=== PATIENT | female | born 1955 | race African-American/Black ===

== ENCOUNTER 2016-12-07 09:05 | Emergency (ER) | payer BC, MEDICAID ==
[~2016-12-07] VITALS: Ht 162.6 cm; Wt 76.9 kg
[~2016-12-07 09:05] MED LIST: ALBU17I INH; ALL220TA PO; CELE200 PO; PERC10TA27 PO; Z.0.NO CURRENT MEDS; ZYRT10TA12 PO
[2016-12-07 09:10] VITALS: BP 139/75; PULSE 80; RESP 16; TEMP 98.1; O2SAT 100
--- NOTE | 2016-12-07 09:31 | PD ---
HPI Chief Complaint: ENT Complaint Time Seen by Provider: 09:14 Travel History International Travel<30 days: No Contact w/Intl Traveler<30days: No Traveled to known affect area: No History of Present Illness HPI This is a 61-year-old female who presents to the emergency department who reports that for several months she's been having intermittent pulsating in her left ear and now it's traveled to her right ear, moderate severity, with no associated pain. She denies any fevers or chills. She denies any headache. She has no primary care physician. She recently moved here. She is on full disability for chronic low back pain. PFSH Past Medical History Asthma: Yes Cancer: No Cardiovascular Problems: Yes (MITRAL VALVE PROLAPSE) Diabetes: No Diminished Hearing: No Endocrine: No Gastrointestinal Disorders: No Genitourinary: No Hepatitis: No Hiatal Hernia: No Hypertension: No Immune Disorder: No Medical other: No Musculoskeletal: Yes (ROTATOR CUFF TEAR L SHOULDER) Neurologic: No Psychiatric: Yes (CLAUSTROPHOBIC) Reproductive: No Respiratory: Yes (HX OF ASTHMA) Immunizations Current: Yes Thyroid Disease: No ?: Not Menopausal: Yes Past Surgical History AICD: No Body Medical Devices: CERVICAL FUSION SCREWS, R SHOULDER SCREW, L BIG TOE SCREW Section: Yes (X 2) Gynecologic Surgery: Yes (C SECTION X 2) Joint Replacement: No Pacemaker: No Other Surgery: Yes (LEFT SHOULDER ROTATOR CUFF SURGERY) Social History Alcohol Use: No Tobacco Use: No Substance Use: No Allergies-Medications (Allergen,Severity, Reaction): Coded Allergies: No Known Allergies (Unverified , 12/07/16) Reported Meds & Prescriptions Reported Meds & Active Scripts Active No Active Prescriptions or Reported Medications Review of Systems General / Constitutional: No: Fever, Chills Cardiovascular: No: Chest Pain or Discomfort Respiratory: No: Shortness of Breath Physical Exam Narrative GENERAL: Well-appearing, no acute distress, nontoxic SKIN: Warm and dry. HEAD: Atraumatic. Normocephalic. ENT: No nasal bleeding or discharge. Moist mucous membranes. Tympanic membranes are clear. MUSCULOSKELETAL: No obvious deformities. No clubbing. No cyanosis. No edema. NEUROLOGICAL: Awake and alert. No obvious cranial nerve deficits. Motor grossly within normal limits. Normal speech. PSYCHIATRIC: Appropriate mood and affect; insight and judgment normal. Data Data Last Documented VS Vital Signs Date Time Temp Pulse Resp B/P Pulse Ox O2 Delivery O2 Flow Rate FiO2 12/07/16 09:10 98.1 80 16 139/75 100 MDM Medical Decision Making Medical Screen Exam Complete: Yes Emergency Medical Condition: Yes Interpretation(s) afebrile, no tachycardia, normotensive Differential Diagnosis Otitis media, otitis externa, AVM Narrative Course This is a 61-year-old female who presents to the emergency department with pulsating in her ears. This is been going on for some time. She has no objective neurologic findings on exam. I explained to her that were limited in our diagnostic ability in the emergency department she likely requires subspecialist follow-up. Patient was given a referral to primary care physician and advised to follow-up with ENT. It's possible the patient has an AVM, but given her symptoms are subacute I think this is more appropriately worked up in the outpatient setting. Diagnosis Primary Impression: Tinnitus, bilateral Referrals: [facility] Patient Instructions: General Instructions Additional Instructions: If you develop severe worsening headache, persistent vomiting, numbness, weakness, difficulty walking or difficulty talking return to the emergency department immediately. Med/Other Pt SpecificInfo: No Change to Meds Scripts No Active Prescriptions or Reported Meds Disposition: 01 DISCHARGE HOME Condition: Stable Faye Judd MD December 07, 2016 09:31
== END 2016-12-07 10:05 | disposition home or self-care (01) ==
LOC: PHED 09:05
DX: H93.13 Tinnitus, bilateral (principal); M54.5 Low back pain; G89.29 Other chronic pain; J45.909 Unspecified asthma, uncomplicated
CPT/HCPCS: 99282